=== PATIENT | male | born 1975 | race Caucasian/White ===

== ENCOUNTER 2022-05-15 11:01 | Outpatient (CLI) | payer OTHER, SELFPAY ==
[2022-05-15 13:44] LABS: Chloride* 104 mmol/L (96-114); Potassium* 4.7 mmol/L (3.6-5.1); Sodium* 142 mmol/L (135-149)
[2022-05-15 13:46] LABS: Cholesterol* 236 mg/dL (90-199)
[2022-05-15 13:47] LABS: Blood Urea Nitrogen* 13 mg/dL (5-24); Calcium* 9.7 mg/dL (8.4-10.6); Carbon Dioxide* 31 mmol/L (20-32); Creatinine* 0.9 mg/dL (0.5-1.5); Estimated Glomerular Filt Rate 107 ml/min; Glucose* 100 mg/dL (60-115); HDL Cholesterol* 51 mg/dL (>=40); LDL Cholesterol Calculated 153 mg/dL (<100); Triglycerides* 162 mg/dL (40-149)
== END 2022-05-15 11:02 | disposition home or self-care (01) ==
PROVIDERS: PCP Family Medicine; Visit Provider Family Medicine
DX: Z00.00 Encounter for general adult medical examination without abnormal findings (principal); Z13.6 Encounter for screening for cardiovascular disorders
CPT/HCPCS: 80048; 80061

== ENCOUNTER 2025-03-15 16:30 | Outpatient (CLI) | payer BC, SELFPAY ==
--- NOTE | 2025-03-15 16:45 | CRLHL7_ITS ---
For Patients: As a result of the Century Cures Act, medical imaging exams and procedure reports are released immediately into your electronic medical record. You may view this report before your referring provider. If you have questions, please contact your health care provider. CLINICAL HISTORY: Pain in left lateral flank radiating to left groin x 24 hrs COMPARISON: none TECHNIQUE: Espino scale and color Doppler images were acquired of the kidneys and urinary bladder. FINDINGS: Sonographic images reveal a symmetric appearance of the kidneys. There is no evidence of hydronephrosis, mass or calculus. The right kidney measures 11.6cm in length and the left kidney measures 12.3cm in length. The renal cortex appears of normal thickness. The urinary bladder appears normal. Color Doppler images reveal a normal appearance of both ureteral jets. There is no evidence of bladder calculi or diverticula. Prevoid bladder volume 173 cc. Postvoid bladder volume 10 cc. Prostate measures 4.9 x 3.6 x 4.0 cm with a volume of 37 cc. IMPRESSION: Normal renal ultrasound. No evidence of renal stone. Dictated by Ramón Maddox MD @ 03/16/2025 6:44:35 AM (Electronically Signed)
== END 2025-03-15 16:31 | disposition home or self-care (01) ==
LOC: US 16:31
PROVIDERS: PCP Family Medicine; Visit Provider Physician Assistant Surgical
DX: R10.9 Unspecified abdominal pain (principal)
CPT/HCPCS: 76770